=== PATIENT | female | born 1990 | race Caucasian/White ===

== ENCOUNTER 2017-07-12 12:25 | Emergency (ER) | payer OTHER ==
[~2017-07-12] VITALS: Ht 154.9 cm; Wt 114.1 kg
[2017-07-12 12:27] VITALS: BP 141/96
[2017-07-12 12:54] LABS: HEMATOCRIT 43.6 % (34.6-47.8); HEMOGLOBIN 14.3 g/dL (11.7-16.4); WHITE BLOOD COUNT 6.2 x10^3/uL (3.4-10)
[2017-07-12 13:06] LABS: BLOOD UREA NITROGEN 9 mg/dL (7-18)
== END 2017-07-12 15:05 | disposition home or self-care (01) ==
LOC: ED 13:17
DX: O03.9 Complete or unspecified spontaneous abortion without complication (principal); F17.200 Nicotine dependence, unspecified, uncomplicated
CPT/HCPCS: 36415; 76801; 80048; 82040; 84702; 85025; 86901; 99285

== ENCOUNTER → 2019-02-11 | Outpatient (CLI) | payer OTHER | END | disposition home or self-care (01) | LOC: CFH 09:08 | PROVIDERS: ATTEND Internal Medicine Cardiovascular Disease | DX: R06.02 Shortness of breath (principal); E78.00 Pure hypercholesterolemia, unspecified | CPT/HCPCS: 93306 ==

== ENCOUNTER 2021-03-21 20:20 | Inpatient (IN) | payer OTHER ==
[~2021-03-21] VITALS: Ht 185.4 cm; Wt 122.0 kg
[2021-03-21 21:01] VITALS: BP 132/83
[2021-03-21] MEDS ORDERED: OXYTOCIN 30U/ 0.9% NaCL 500ML 500 ML IV ONE (21:30)
[2021-03-21] MEDS ORDERED: D5%-LACTATED RINGERS 1,000 ML IV SCH (21:30)
[2021-03-21] MEDS ORDERED: TERBUTALINE 1 MG/ML, 1ML SQ PRN (21:30)
[2021-03-21] MEDS ORDERED: TERBUTALINE 1 MG/ML, 1ML IVPush PRN (21:30)
[2021-03-21] MEDS ORDERED: FENTANYL PF 100 MCG/2ML IVPush PRN (21:30)
[2021-03-21] MEDS ORDERED: ONDANSETRON 2MG/ML, 2ML IVPush PRN (21:30)
[2021-03-21] MEDS ORDERED: LACTATED RINGERS 1,000 ML IV SCH ×2 (21:30→23:30)
[2021-03-21] MEDS ORDERED: OXYTOCIN 30U/ 0.9% NaCL 500ML 500 ML IV PRN (21:30)
[2021-03-21] MEDS ORDERED: FENTANYL PF 100 MCG/2ML IV PRN (21:30)
[2021-03-21 21:50] LABS: BASOPHILS % (AUTO) 1 % (0-1); EOSINOPHILS % (AUTO) 2 % (1-7); LYMPHOCYTES % (AUTO) 23 % (22-44); MEAN CORPUSCULAR HEMOGLOBIN 26.8 pg (27.0-34.8); MEAN PLATELET VOLUME 8.6 fL (7.4-10.4); MONOCYTES % (AUTO) 7 % (2-9); NEUTROPHILS % (AUTO) 68 % (42-75); PLATELET COUNT 199 x10^3/uL (130-400); RED BLOOD COUNT 4.96 x10^6/uL (3.82-5.3); RED CELL DISTRIBUTION WIDTH 16.1 % (9.6-15.2)
[2021-03-21 21:53] LABS: MD NO
[2021-03-21] MEDS ORDERED: BUPIVACAINE 0.25% ONE ×2 (22:44→23:46)
[2021-03-21 22:45] VITALS: BP 134/85
[2021-03-21] MEDS ORDERED: FENTANYL/BUPIV./NS/PF 250 ML EPIDCONT ONE (22:45)
[2021-03-21] MEDS ORDERED: FENTANYL/BUPIV./NS/PF 250 ML EPIDCONT SCH (23:30)
[2021-03-21] MEDS ORDERED: EPHEDRINE 50 MG/ML, 1ML IVPush PRN (23:30)
[2021-03-21] MEDS ORDERED: LACTATED RINGERS 1,000 ML IVBOLUS PRN (23:30)
[2021-03-22] MEDS ORDERED: OXYTOCIN 30U/ 0.9% NaCL 500ML 500 ML IV PRN (00:30)
[2021-03-22] MEDS ORDERED: ALUMINUM/MAG/SIMETHICONE 30 ML UDC PO PRN (02:00)
[2021-03-22] MEDS ORDERED: IBUPROFEN 800 MG TABLET PO PRN (04:30)
[2021-03-22] MEDS ORDERED: TRANEXAMIC ACID 1,000 MG in SODIUM CHLORIDE 0.9% 100 ML IVPB ONE (04:30)
[2021-03-22] MEDS ORDERED: CARBOPROST TROMETHAMINE 250 MCG/ML, 1ML IM PRN (04:30)
[2021-03-22] MEDS ORDERED: ONDANSETRON 2MG/ML, 2ML IV PRN (04:30)
[2021-03-22] MEDS ORDERED: GLYCERIN ADULT SUPP PR PRN (04:30)
[2021-03-22] MEDS ORDERED: ACETAMINOPHEN 325 MG TABLET PO PRN (04:30)
[2021-03-22] MEDS ORDERED: MISOPROSTOL 200 MCG TABLET PO PRN (04:30)
[2021-03-22] MEDS ORDERED: METOCLOPRAMIDE 5 MG/ML, 2ML IV PRN (04:30)
[2021-03-22] MEDS ORDERED: BISACODYL 10 MG SUPP PR PRN (04:30)
[2021-03-22] MEDS ORDERED: SIMETHICONE 80 MG CHEW TAB PO PRN (04:30)
[2021-03-22] MEDS ORDERED: OXYTOCIN 30U/ 0.9% NaCL 500ML 500 ML IV SCH (04:30)
[2021-03-22] MEDS ORDERED: METHYLERGONOVINE 0.2 MG/ML IM PRN (04:30)
[2021-03-22] MEDS ORDERED: OXYcodone IR 5MG TABLET PO PRN (04:30)
[2021-03-22 06:10] VITALS: BP 118/77
[2021-03-22 06:50] VITALS: BP 123/75
[2021-03-22] MEDS: IBUPROFEN 600 MG TABLET PO PRN ×3 (09:00→21:30)
[2021-03-22] MEDS ORDERED: PRENATAL VIT/IRON/FA 1 EACH TABLET PO SCH (09:00)
[2021-03-22] MEDS: DOCUSATE 100 MG CAPSULE PO PRN ×2 (09:00→21:30)
[2021-03-22 11:18] VITALS: BP 118/72
[2021-03-22 12:04] LABS: BASOPHILS % (AUTO) 1 % (0-1); EOSINOPHILS % (AUTO) 0 % (1-7); LYMPHOCYTES % (AUTO) 14 % (22-44); MEAN CORPUSCULAR HEMOGLOBIN 26.3 pg (27.0-34.8); MEAN CORPUSCULAR HGB CONC 33.3 g/dL (32.4-35.8); MEAN PLATELET VOLUME 8.5 fL (7.4-10.4); MONOCYTES % (AUTO) 6 % (2-9); NEUTROPHILS % (AUTO) 80 % (42-75); PLATELET COUNT 191 x10^3/uL (130-400); RED BLOOD COUNT 4.43 x10^6/uL (3.82-5.3); RED CELL DISTRIBUTION WIDTH 16.7 % (9.6-15.2)
[2021-03-22 12:06] LABS: MD NO
[2021-03-22 16:00] VITALS: BP 119/73
[2021-03-22 20:26] VITALS: BP 119/80
[2021-03-22] MEDS: OXYcodone/APAP 5/325MG TABLET PO PRN (21:31)
[2021-03-23] MEDS: OXYcodone/APAP 5/325MG TABLET PO PRN ×2 (04:57→12:34)
[2021-03-23] MEDS: IBUPROFEN 600 MG TABLET PO PRN ×2 (04:57→12:34)
[2021-03-23] MEDS ORDERED: OXYC-302 PO (07:09)
[2021-03-23 08:10] VITALS: BP 136/80
== END 2021-03-23 13:05 | disposition home or self-care (01) | DRG 807 ==
LOC: LDOP 20:20 → LDIP 21:29 → 2NW 03-22 05:45
PROVIDERS: ADMIT Obstetrics & Gynecology; ATTEND Obstetrics & Gynecology
PROC: 10E0XZZ Delivery of Products of Conception, External Approach (ICD-10-PCS; principal; 2021-03-22)
PROC: 0HQ9XZZ Repair Perineum Skin, External Approach (ICD-10-PCS; 2021-03-22)
PROC: 3E0R3BZ Introduction of Anesthetic Agent into Spinal Canal, Percutaneous Approach (ICD-10-PCS; 2021-03-22)
PROC: 00HU33Z Insertion of Infusion Device into Spinal Canal, Percutaneous Approach (ICD-10-PCS; 2021-03-22)
DX: O69.81X0 Labor and delivery complicated by cord around neck, without compression, not applicable or unspecified (principal); Z37.0 Single live birth; Z3A.38 38 weeks gestation of pregnancy; O70.0 First degree perineal laceration during delivery; Z20.822 Contact with and (suspected) exposure to COVID-19; Z80.3 Family history of malignant neoplasm of breast; Z82.3 Family history of stroke; Z82.49 Family history of ischemic heart disease and other diseases of the circulatory system; Z83.3 Family history of diabetes mellitus
CPT/HCPCS: 36415; 85025; 86592; 86850; 86900; 87635; 89060; G0378; J2590; J3010; J7120; Q0114